=== PATIENT | male | born 1975 | race Caucasian/White ===

== ENCOUNTER 2022-08-17 15:21 | Emergency (ER) | payer SELFPAY ==
[2022-08-17] VITALS (9 sets, daily range): BP systolic 118–141; BP diastolic 69–81; PULSE 83–97; RESP 14–18; TEMP 36.8; O2SAT 94–98; BMI 28.4
--- NOTE | 2022-08-17 17:18 | ED_ITS ---
HPI - Nausea/Vomiting/Diarrhea General: Chief complaint: Nausea/Vomiting/Diarrhea Stated complaint: postsurg/n/v/chills Time Seen by Provider: 08/17/22 17:17 History of Present Illness: Mr. Toney is a 46-year-old gentleman with history of ulcerative colitis and recent total colectomy with ileorectal anastomoses at [facility] by Dr. Keith presenting to the emergency department for concern over possible obstruction. He reports being discharged from [facility] 2 days ago and had been doing well. He is now developed increased distention, pain, nausea, vomiting. He endorses heartburn and generalized malaise. Intensity symptoms is moderate. Course has worsened. He contacted his surgeon who recommended ER evaluation for obstruction. No other specific changes in health, exacerbating, or alleviating factors identified. Surgery was 08/12. Patient has been having small amounts of just liquid output every few hours today. Onset (ago): hour(s) Description of vomiting: watery and bilious Description of diarrhea: watery Associated nausea: Yes Associated abdominal pain: Yes Location of pain: Diffuse Pain consistency: constant Severity: moderate Quality: cramping Exacerbating factors: eating Relieving factors: none Context: recent surgery/procedure Associated symtoms: Reports nausea Review of Systems General: Reports: 10 or more systems reviewed and unremarkable except in HPI and below GI: Reports: nausea PFSH ED PFSH: Medical History Ulcerative colitis Surgical History History of total colectomy Physical Exam Const: COMMON NORMALS: alert GENERAL APPEARANCE: cooperative and well developed HENMT: COMMON NORMALS: normocephalic and atraumatic HEAD & SCALP: normocephalic and atraumatic Eye: COMMON NORMALS: conjunctivae normal CONJUNCTIVA: Yes conjunctivae normal SCLERA: sclerae normal Neck/C-Spine: COMMON NORMALS: supple GENERAL: Yes trachea midline Resp: COMMON NORMALS: normal respiratory effort EFFORT & INSPECTION: Yes able to speak in complete sentences Cardio: COMMON NORMALS: regular rate and regular rhythm RATE: regular rate RHYTHM: regular rhythm GI: COMMON NORMALS: Soft to palpation PALPATION: Yes Soft to palpation, Yes Tenderness to palpation present (GI), No Guarding due to palpation present (GI) and No Rigid due to palpation Extremity: GENERAL: Yes normal exam except as noted and No edema Neuro: COMMON NORMALS: moves all extremities SENSORIUM/ORIENTATION: Yes alert and No Orientation impaired Psych: COMMON NORMALS: mental status grossly normal and Normal thought process present THOUGHT PROCESS: Normal thought process present Skin: NARRATIVE SKIN EXAM: Surgical incision appears well-healing without evidence of dehiscence, bleeding, cellulitis, discharge. Course Vital Signs: Vital signs: Vital Signs Temperature 98.2 F 08/17/22 15:25 Pulse Rate 90 08/17/22 22:00 Respiratory Rate 15 08/17/22 22:25 Blood Pressure 141/69 08/17/22 22:00 Pulse Oximetry 96 08/17/22 22:00 Oxygen Delivery Me thod 08/17/22 22:00 MDM - Nausea/Vomiting/Diarrhea Medical Decision Making 46-year-old gentleman with recent history of total colectomy presenting due to nausea, vomiting, increased pain, chills, generalized malaise. He is nontoxic appearance. Exam as above. Labs with no leukocytosis, normal hemoglobin and platelet count. Mild dehydration on metabolic panel. No UTI. Chest x-ray demonstrates no lobar consolidation or pneumothorax. CT abdomen pelvis likely severe postoperative ileus, no other evidence of complication. There is fluid backed up to the stomach. During ED course patient treated with analgesia, fluids, antiemetic. Given severity of illness he does require inpatient evaluation and treatment however given recent surgical procedure requires transfer back to facility where operation was performed. The results of ED evaluation were discussed with the patient including plan for transfer due to requirement for level of care not available if discharged to prevent significant worsening/deterioration. Patient agreeable with plan. NG tube ordered. Patient left our facility via EMS with transfer to [facility] in satisfactory condition. Medical Records I reviewed the patient's medical records. Lab Data I reviewed the patient's lab results. 08/17/22 17:45 08/17/22 17:45 Radiology Impressions Chest X-Ray 08/17/22 17:26 IMPRESSION: No acute findings. Abdomen/Pelvis CT 08/17/22 17:53 IMPRESSION: 1. Diffuse fluid distension of the small bowel is most likely severe postoperative ileus. Distal small bowel obstruction is not entirely excluded but no focal transition point is identified. 2. Colectomy changes. 3. Fluid distended stomach. NG tube placement should be considered. 4. Mild ascites. 5. Mild wall thickening and fat stranding around the urinary bladder. This is suspicious for cystitis. Clinical correlation is recommended. 6. Soft tissue gas bubbles in the proximal right inguinal canal may relate to recent surgery. Infection is not excluded. 7. 5 mm right pulmonary nodule. For patients at low risk (minimal or absent history of smoking and of other known risk factors), no routine follow-up is indicated. For patients at high risk (history of smoking or of other known risk factors), consider optional CT Chest at 12 months. (Reference: Aj) References: Aj Lala, et al. Guidelines for Management of Incidental Pulmonary Nodules Detected on CT Images: From the Fleischner Society 2017. Radiology. 2017;284(1):228-243. Laboratory Results WBC 6.8 10^3/uL (4.0-10.0) 08/17/22 17:45 RBC 4.27 10^6/uL (4.1-5.3) 08/17/22 17:45 Hgb 15.3 g/dL (11.7-16.6) 08/17/22 17:45 Hct 43.0 % (42.0-52.0) 08/17/22 17:45 MCV 100.7 fl (80-94) H 08/17/22 17:45 MCH 35.8 pg (28.0-34.0) H 08/17/22 17:45 MCHC 35.6 g/dL (30.0-36.0) 08/17/22 17:45 RDW 12.9 % (12.1-15.1) 08/17/22 17:45 Plt Count 306 10^3/cmm (130-400) 08/17/22 17:45 MPV 9.1 fL (7.4-10.4) 08/17/22 17:45 Neut % (Auto) 80.6 % 08/17/22 17:45 Lymph % (Auto) 7.7 % 08/17/22 17:45 Mellette % (Auto) 9.4 % 08/17/22 17:45 Eos % (Auto) 1.0 % 08/17/22 17:45 Baso % (Auto) 0.6 % 08/17/22 17:45 Neut # (Auto) 5.51 10^3/uL (1.8-7.7) 08/17/22 17:45 Lymph # (Auto) 0.5 10^3/uL (0.8-4.8) L 08/17/22 17:45 Mellette # (Auto) 0.6 10^3/uL (0.2-0.9) 08/17/22 17:45 Eos # (Auto) 0.1 10^3/uL (0.0-0.8) 08/17/22 17:45 Baso # (Auto) 0.0 10^3/uL (0.0-0.1) 08/17/22 17:45 Nucleated RBC % (auto) 0 % 08/17/22 17:45 Nucleated RBCs # 0.0 /100WBC 08/17/22 17:45 Sodium 134 mmol/L (136-145) L 08/17/22 17:45 Potassium 4.4 mmol/L (3.5-5.1) 08/17/22 17:45 Chloride 95 mmol/L (98-107) L 08/17/22 17:45 Carbon Dioxide 27 mmol/L (22-29) 08/17/22 17:45 Anion Gap 16.4 (5-19) 08/17/22 17:45 BUN 13 mg/dL (6-20) 08/17/22 17:45 Creatinine 0.8 mg/dL (0.7-1.2) 08/17/22 17:45 GFR Calculation 103.6 mL/min (90-130) 08/17/22 17:45 Glucose 113 mg/dL (65-115) 08/17/22 17:45 Calculated Osmolality 279 mOsm/kg (285-295) L 08/17/22 17:45 Lactate 1.5 mmol/L (0.5-2.2) 08/17/22 17:45 Calcium 9.4 mg/dL (8.5-10.5) 08/17/22 17:45 Total Bilirubin 0.9 mg/dL (0.15-1.2) 08/17/22 17:45 AST 23 U/L (0-40) 08/17/22 17:45 ALT 30 U/L (0-41) 08/17/22 17:45 Alkaline Phosphatase 77 U/L (40-130) 08/17/22 17:45 Total Protein 7.8 g/dL (6.6-8.7) 08/17/22 17:45 Albumin 4.3 g/dL (3.5-5.2) 08/17/22 17:45 Globulin 3.5 g/dL (1.3-4.6) 08/17/22 17:45 Lipase 15 U/L (13-60) 08/17/22 17:45 Urine Color Yellow (Yellow) 08/17/22 19:03 Urine Appearance Clear (CLEAR) 08/17/22 19:03 Urine pH 6.5 (5-7) 08/17/22 19:03 Ur Specific [place] 1.010 (1.005-1.030) 08/17/22 19:03 Urine Protein Neg (Negative) 08/17/22 19:03 Urine Glucose (UA) Norm (Normal) 08/17/22 19:03 Urine Ketones 1+ (Negative) H 08/17/22 19:03 Urine Blood Neg (Negative) 08/17/22 19:03 Urine Nitrate Negative (Negative) 08/17/22 19:03 Urine Bilirubin Neg (Negative) 08/17/22 19:03 Urine Urobilinogen Norm mg/dL (Negative) 08/17/22 19:03 Ur Leukocyte Esterase Negative (Negative) 08/17/22 19:03 Discharge Plan Discharge Patient Disposition: Xfer Short-Term Hosp Clinical Impression: Postoperative ileus Condition: Stable Referrals: Gonzalez Aguero MD [Primary Care Provider] - Coding Level of Care Code ED Connie Cleaner for Dia Darden
--- NOTE | 2022-08-17 17:26 | XRR_ITS ---
PROCEDURE INFORMATION: Exam: XR Chest Exam date and time: 08/17/2022 5:48 PM Age: 46 years old Clinical indication: Pain; Other: Back; Prior surgery; Surgery date: 3-7 days post-operative; Surgery type: Colon resection; Additional info: Rib pain TECHNIQUE: Imaging protocol: Radiologic exam of the chest. Views: 1 view. COMPARISON: CR XR cervical spine 4-5V [id number] 06/16/2017 3:02 PM FINDINGS: Lungs: Mild atelectasis in the left base. The lungs are otherwise clear. No consolidation. Pleural spaces: Unremarkable. No pleural effusion. No pneumothorax. Heart/Mediastinum: Unremarkable. No cardiomegaly. Bones/joints: Unremarkable. XR/XR chest 1V portable [id number] IMPRESSION: No acute findings.
[2022-08-17] MEDS: sodium chloride 0.9% 1,000 ML 999 ML IV (17:40)
[2022-08-17] MEDS: ondansetron 2 mg/ML SDV 2 mL 4 MG IVP (17:42)
[2022-08-17] MEDS: morphine 4 mg/mL SDV 1 mL IVP ×3 (17:42→22:25)
--- NOTE | 2022-08-17 17:53 | CTR_ITS ---
PROCEDURE INFORMATION: Exam: CT Abdomen And Pelvis With Contrast Exam date and time: 08/17/2022 6:00 PM Age: 46 years old Clinical indication: Abdominal pain; Generalized; Prior surgery; Surgery date: 3-7 days post-operative; Patient HX: C/O of abd pain post total colectomy on 08/12/2022 due to ulcerative colitis. ; Additional info: Abd pain, postop from total colectomy with ileorectal anastomoses. TECHNIQUE: Imaging protocol: Computed tomography of the abdomen and pelvis with contrast. Radiation optimization: All CT scans at this facility use at least one of these dose optimization techniques: automated exposure control; mA and/or kV adjustment per patient size (includes targeted exams where dose is matched to clinical indication); or iterative reconstruction. Contrast material: OMNI 350; Contrast volume: 100 ml; Contrast route: INTRAVENOUS (IV); REPORTING DATA: Count of CT and Cardiac NM exams in prior 12 months: This patient has received 0 known CTs and 0 known cardiac nuclear medicine studies in the 12 months prior to the current study. COMPARISON: CR (CHEST, ) 08/17/2022 5:48 PM RADIATION DOSE METRICS: Total DLP (mGy-cm): 812.68 FINDINGS: Lungs: 5 mm right middle lobe nodule. Pleural spaces: Trace right pleural effusion. Liver: Normal. No mass. Gallbladder and bile ducts: Normal. No calcified stones. No ductal dilation. Pancreas: Normal. No ductal dilation. Spleen: Normal. No splenomegaly. Adrenal glands: Normal. No mass. Kidneys and ureters: Normal. No hydronephrosis. Stomach and bowel: Fluid distended stomach with air-fluid level. No wall thickening. Diffuse fluid distension of the small bowel with air-fluid levels. The jejunum measures up to 5 cm in diameter. No focal transition point identified. Changes of complete colectomy with ileorectal anastomosis. Appendix: No evidence of appendicitis. Intraperitoneal space: Mild ascites in the lower abdomen. No pneumoperitoneum. Vasculature: Unremarkable. No abdominal aortic aneurysm. Lymph nodes: Unremarkable. No enlarged lymph nodes. Urinary bladder: Small air-fluid level in the urinary bladder with mild wall thickening and adjacent fat stranding. Reproductive: Unremarkable as visualized. Bones/joints: Unremarkable. No acute fracture. Soft tissues: Fat containing left inguinal hernia. Small scattered gas bubbles in the proximal right inguinal canal. Small gas bubbles in the left and right anterior abdominal wall, most likely medication injection sites. No organized soft tissue fluid collection. Anterior laparotomy incision with skin ramon. CT/CT abdomen pelvis w con* [id number] IMPRESSION: 1. Diffuse fluid distension of the small bowel is most likely severe postoperative ileus. Distal small bowel obstruction is not entirely excluded but no focal transition point is identified. 2. Colectomy changes. 3. Fluid distended stomach. NG tube placement should be considered. 4. Mild ascites. 5. Mild wall thickening and fat stranding around the urinary bladder. This is suspicious for cystitis. Clinical correlation is recommended. 6. Soft tissue gas bubbles in the proximal right inguinal canal may relate to recent surgery. Infection is not excluded. 7. 5 mm right pulmonary nodule. For patients at low risk (minimal or absent history of smoking and of other known risk factors), no routine follow-up is indicated. For patients at high risk (history of smoking or of other known risk factors), consider optional CT Chest at 12 months. (Reference: Aj) References: Aj Lala, et al. Guidelines for Management of Incidental Pulmonary Nodules Detected on CT Images: From the Fleischner Society 2017. Radiology. 2017;284(1):228-243.
[2022-08-17 17:55] LABS: Basophils % 0.6 %; Eosinophils # 0.1 10^3/uL (0.0-0.8); Hemoglobin 15.3 g/dL (11.7-16.6); Lymphocytes # 0.5 10^3/uL (0.8-4.8); Lymphocytes % 7.7 %; Mean Corpuscular HGB Conc 35.6 g/dL (30.0-36.0); Mean Corpuscular Hemoglobin 35.8 pg (28.0-34.0); Mean Corpuscular Volume 100.7 fl (80-94); Mean Platelet Volume 9.1 fL (7.4-10.4); Monocytes # 0.6 10^3/uL (0.2-0.9); Monocytes % 9.4 %; Neutrophils # 5.51 10^3/uL (1.8-7.7); Neutrophils % 80.6 %; Nucleated Red Blood Cells % 0 %; Platelet Count 306 10^3/cmm (130-400); Red Blood Count 4.27 10^6/uL (4.1-5.3); Red Cell Distribution Width 12.9 % (12.1-15.1); White Blood Count 6.8 10^3/uL (4.0-10.0)
[2022-08-17] MEDS: iohexol 350 mg/mL 500 mL Btl (per mL) IV (18:03)
[2022-08-17 18:17] LABS: Alanine Aminotransferase 30 U/L (0-41); Albumin Level 4.3 g/dL (3.5-5.2); Alkaline Phosphatase 77 U/L (40-130); Anion Gap 16.4 (5-19); Aspartate Amino Transferase 23 U/L (0-40); Blood Urea Nitrogen 13 mg/dL (6-20); Calcium 9.4 mg/dL (8.5-10.5); Carbon Dioxide 27 mmol/L (22-29); Chloride 95 mmol/L (98-107); Globulin 3.5 g/dL (1.3-4.6); Glomerular Filtration Rate 103.6 mL/min (90-130); Glucose 113 mg/dL (65-115); Lipase 15 U/L (13-60); Osmolality Calculated 279 mOsm/kg (285-295); Potassium 4.4 mmol/L (3.5-5.1); Sodium 134 mmol/L (136-145); Total Bilirubin 0.9 mg/dL (0.15-1.2); Total Protein 7.8 g/dL (6.6-8.7)
[2022-08-17 18:18] LABS: Lactate (Lactic Acid level) 1.5 mmol/L (0.5-2.2)
[2022-08-17 19:12] LABS: Add Urine Microscopic? NO; Charge for UA Resulting for Rev
[2022-08-17 19:18] LABS: Bilirubin Urine Neg (Negative); Blood Urine Neg (Negative); Glucose Urine UA Norm (Normal); Ketones Urine 1+ (Negative); Leukocyte Esterase Urine Negative (Negative); Nitrate Urine Negative (Negative); Protein Urine Neg (Negative); Urine Appearance Clear (CLEAR); Urine Color Yellow (Yellow); Urobilinogen Urine Norm (Negative); pH Urine 6.5 (5-7)
--- NOTE | 2022-08-17 20:09 | PC.NURSE ---
Spoke with transfer nurse for [facility] ([phone]), report given to her, they will call with a bed within about an hour
[2022-08-17] MEDS: enoxaparin 40 mg/0.4 mL Syringe SUBCUT (22:21)
--- NOTE | 2022-08-17 23:20 | PC.NURSE ---
Addendum entered by Zaida George RN 08/18/22 00:24: Patient report received from LAZARUS Cotton. Original Note: Patient
== END 2022-08-18 00:26 | disposition short-term general hospital (02) ==
PROVIDERS: Emergency Provider Emergency Medicine; PCP Family Medicine
DX: K91.89 Other postprocedural complications and disorders of digestive system (principal); K56.7 Ileus, unspecified
CPT/HCPCS: 71045; 74177; 80053; 81003; 83605; 83690; 85025; 96361; 96372; 96374; 96375; 96376; 99285; J1650; J2270; J2405; J7030; Q9967

== ENCOUNTER 2022-10-12 16:13 | Emergency (ER) | payer SELFPAY ==
[2022-10-12 16:27] VITALS: BP 127/70; PULSE 117; RESP 19; TEMP 37; O2SAT 98; BMI 25.8
[2022-10-12 17:16] VITALS: BP 115/65; PULSE 108; O2SAT 99
--- NOTE | 2022-10-12 17:33 | W.ED.GIBLEED ---
HPI - GI Bleed General: Chief complaint: GI Bleed Stated complaint: post op/infection seroma Time Seen by Provider: 10/12/22 17:17 History of Present Illness: Patient presents to the ER today with complications of abdominal seroma. Patient says he has had this seroma for several days and it is Enlarging getting red and irritated and more painful. On entering the ER waiting room he did burst and drained some purulent foul-smelling debris. Patient's original surgery was a colectomy with ileorectal anastomosis on 08/12/2022 done by [facility]. [place]TON complaint: other (Abdominal seroma) Onset (ago): day(s) Pain Consistency: constant and now resolved Severity: moderate Relieving factors: other (Pain pressure significantly improved upon seroma drainage) Exacerbating factors: none Associated symptoms: Denies abdominal pain, chills, fever(s), headache(s), nausea, rash or vomiting Review of Systems General: Reports: 10 or more systems reviewed and unremarkable except in HPI and below Const: Denies: fever(s) or chills Eyes: Denies: change in vision, blurry vision, blind spots or photophobia ENMT: Denies: throat pain or odynophagia Card: Denies: chest pain or palpitations Resp: Denies: dyspnea, productive cough or non-productive cough GI: Denies: abdominal pain, nausea, vomiting or hematemesis : Denies: flank pain, difficulty urinating or dysuria Musc: Denies: neck pain, back pain, extremity pain or extremity swelling Skin/Breast: Denies: rash or pruritus Neuro: Denies: headache(s) PFSH ED PFSH: Medical History Ulcerative colitis Surgical History History of total colectomy Physical Exam Const: COMMON NORMALS: no acute distress, average body habitus, patient oriented x3, no limitations, healthy appearing, alert and well nourished HENMT: COMMON NORMALS: normocephalic, atraumatic, hearing grossly normal bilaterally, external ears normal, Normal external nose present and moist oral mucous membranes HEAD & SCALP: normocephalic and atraumatic NOSE: Normal external nose present EXTERNAL EAR: Yes external ears normal Eye: COMMON NORMALS: Equal, round and reactive pupils present, EOMs intact bilaterally, conjunctivae normal and no scleral icterus CONJUNCTIVA: Yes conjunctivae normal PUPIL: Yes Equal, round and reactive pupils present Neck/C-Spine: COMMON NORMALS: full ROM, no lymphadenopathy, no meningeal signs, no JVD and Thyroid normal THYROID: Thyroid normal Lymph: LYMPHATIC: no lymphadenopathy noted Chest: COMMONS NORMALS: normal inspection of the chest and normal palpation of entire chest wall Resp: COMMON NORMALS: normal respiratory effort, No retractions and No use of accessory muscles Cardio: COMMON NORMALS: no JVD, regular rate, regular rhythm, S1 normal heart sound present and S2 normal heart sound present RATE: regular rate RHYTHM: regular rhythm HEART SOUNDS: S1 normal heart sound present and S2 normal heart sound present Neuro: COMMON NORMALS: patient oriented x3 SENSORIUM/ORIENTATION: Yes alert MENINGEAL SIGNS: Yes no meningeal signs Course Vital Signs: Vital signs: Vital Signs Temperature 98.6 F 10/12/22 16:27 Pulse Rate 108 H 10/12/22 17:16 Respiratory Rate 19 H 10/12/22 16:27 Blood Pressure 115/65 10/12/22 17:16 Pulse Oximetry 99 10/12/22 17:16 Oxygen Delivery Me thod Room Air 10/12/22 17:16 MDM - GI Bleed Medical Decision Making Patient presents to the ER with complaints of abdominal seroma postsurgical open and draining. Patient has abscess like area to his lower abdomen that is draining purulent material. It can be consistent with a seroma that got infected. This area was cleaned wound culture was obtained. The area was massaged and drained as well as the wound was probed. Patient will be placed on antibiotics and sent home to follow-up with his primary care physician and/or surgeon within the next 1 week. Differential Diagnosis Unlikely hemorrhoids, infectious diarrhea, esophageal varices or gastritis Medical Records I reviewed the patient's medical records. Lab Data I reviewed the patient's lab results. Discharge Plan Discharge Patient Disposition: Home Clinical Impression: Abdominal wall abscess Condition: Stable Prescriptions: New Bactrim DS 800-160 mg tablet 1 tab PO BID Qty: 20 0RF Discharge Orders: Discharge ED (Routine); Ordered 10/12/22 Ordered By: Mark Wang Referrals: Gonzalez Aguero MD [Primary Care Provider] - 1 week Patient Instructions: Abscess (ED) Coding Level of Care Code ED Ticket Writer for Dia Darden
[2022-10-12] MEDS: sulfamethoxazole-trimeth DS 160-800 mg Tablet 1 TAB PO (19:16)
[2022-10-12 19:29] VITALS: BP 129/83; PULSE 111; O2SAT 98
== END 2022-10-12 19:31 | disposition home or self-care (01) ==
PROVIDERS: Emergency Provider Emergency Medicine; PCP Family Medicine
DX: L02.211 Cutaneous abscess of abdominal wall (principal)
CPT/HCPCS: 87070; 99283